=== PATIENT | male | born 1975 | race Caucasian/White ===

== ENCOUNTER 2018-01-02 18:08 | Emergency (ER) | payer BC, OTHER ==
[2018-01-02] MEDS ORDERED: Cyclobenzaprine 10 MG TAB ONE (18:52)
[2018-01-02] MEDS ORDERED: Ketorolac Tromethamine 30 MG/ML VIAL ONE (18:52)
--- NOTE | 2018-01-02 19:36 | RAD ---
LUMBAR SPINE 2-3 VIEW: 01/02/18 INDICATION: Low back pain. FINDINGS: Mild degenerative change present without acute compression fracture. There is a grade I spondylolisth esis at L5-S1. Probable associated pars defect, as well. IMPRESSION: 1. Findings suggest pars defect at L5 with associated grade I spondylolisthesis at the L5-S1 lev el. 2. No acute compression fracture. POS: [facility]
== END 2018-01-02 20:12 | disposition home or self-care (01) ==
LOC: ERS 18:08
DX: S39.012A Strain of muscle, fascia and tendon of lower back, initial encounter (principal); I48.91 Unspecified atrial fibrillation; Z79.899 Other long term (current) drug therapy; X50.9XXA Other and unspecified overexertion or strenuous movements or postures, initial encounter
CPT/HCPCS: 72100; 96374; J1885

== ENCOUNTER 2023-08-21 06:06 | Day surgery (SDC) | payer BC ==
[2023-08-20 14:47] VITALS: BMI 32.2
[2023-08-21] MEDS ORDERED: fentaNYL PF 100 MCG/2 ML SYRINGE ONE (07:33)
[2023-08-21] MEDS ORDERED: PROPOFOL 20 ML ONE ×3 (07:34→07:58)
[2023-08-21] MEDS ORDERED: Lidocaine 1% PF 5 ML VIAL ONE (07:36)
== END 2023-08-21 08:46 | disposition home or self-care (01) ==
LOC: SDC 06:06
PROVIDERS: ATTEND Internal Medicine Gastroenterology
PROC: 0DB68ZX Excision of Stomach, Via Natural or Artificial Opening Endoscopic, Diagnostic (ICD-10-PCS; principal; 2023-08-21)
PROC: 0DB58ZX Excision of Esophagus, Via Natural or Artificial Opening Endoscopic, Diagnostic (ICD-10-PCS; principal; 2023-08-21)
PROC: 0DJD8ZZ Inspection of Lower Intestinal Tract, Via Natural or Artificial Opening Endoscopic (ICD-10-PCS; principal; 2023-08-21)
DX: Z12.11 Encounter for screening for malignant neoplasm of colon (principal); K57.30 Diverticulosis of large intestine without perforation or abscess without bleeding; K64.9 Unspecified hemorrhoids; K29.50 Unspecified chronic gastritis without bleeding; K21.00 Gastro-esophageal reflux disease with esophagitis, without bleeding; K22.89 Other specified disease of esophagus; K25.9 Gastric ulcer, unspecified as acute or chronic, without hemorrhage or perforation; J30.2 Other seasonal allergic rhinitis
CPT/HCPCS: 88305; J2704